=== PATIENT | female | born 1990 | race Two or more races ===

== ENCOUNTER 2023-06-30 15:32 | Outpatient (CLI) | payer OTHER | END 2023-06-30 15:34 | disposition home or self-care (01) | LOC: PRENATAL 15:32 | PROVIDERS: ATTEND Obstetrics & Gynecology Maternal & Fetal Medicine | DX: O36.80X0 Pregnancy with inconclusive fetal viability, not applicable or unspecified (principal); Z36.82 Encounter for antenatal screening for nuchal translucency; Z36.9 Encounter for antenatal screening, unspecified; O99.891 Other specified diseases and conditions complicating pregnancy; O34.10 Maternal care for benign tumor of corpus uteri, unspecified trimester; Z3A.12 12 weeks gestation of pregnancy ==

== ENCOUNTER → 2023-08-24 | Outpatient (CLI) | payer OTHER | END | disposition home or self-care (01) | LOC: PRENATAL 13:16 | PROVIDERS: ATTEND Obstetrics & Gynecology Maternal & Fetal Medicine | DX: O35.3XX0 Maternal care for (suspected) damage to fetus from viral disease in mother, not applicable or unspecified (principal); O44.00 Complete placenta previa NOS or without hemorrhage, unspecified trimester; O99.891 Other specified diseases and conditions complicating pregnancy; O34.10 Maternal care for benign tumor of corpus uteri, unspecified trimester; O36.0199 Maternal care for anti-D [Rh] antibodies, unspecified trimester, other fetus; Z3A.20 20 weeks gestation of pregnancy ==

== ENCOUNTER 2023-10-02 14:37 | Outpatient (CLI) | payer OTHER ==
[2023-10-02] MEDS ORDERED: PRENATAL TABLE1 EAC4 PO (14:45)
[2023-10-02] MEDS ORDERED: RINGERS SOLUTION,LACTATED 1,000 ML IV SCH (14:45)
[2023-10-02] MEDS ORDERED: CEFAZOLIN SODIUM 1,000 MG VIAL IV SCH (14:45)
[2023-10-02 15:03] LABS: HEMATOCRIT 32.8 % (36.0-45.00); HEMOGLOBIN 11.4 g/dL (12.0-15.00); MEAN CELL VOLUME 83.4 fL (80.00-100.00); MEAN CORPUSCULAR HGB CONC 34.8 g/dl (32.0-36.0); PLATELET COUNT 237 K/uL (150-450); RED BLOOD COUNT 3.94 M/uL (4.00-6.00); RED CELL DISTRIBUTION WIDTH 13.8 % (11.5-14.5)
[2023-10-02 15:28] LABS: INR < 0.93; PARTIAL THROMBOPLASTIN TIME 23.4 SECONDS (22.0-34.0); PROTHROMBIN TIME 9.8 SECONDS (9.0-11.5)
[2023-10-02 18:31] LABS: PH,URINE 6.5 (5.0-8.0); URINE APPEARANCE Clear; URINE BILIRRUBIN Negative (NEGATIVE); URINE BLOOD Negative; URINE COLOR Yellow; URINE GLUCOSE Negative (NEGATIVE); URINE LEUKOCYTE Negative; URINE NITRATE Negative; URINE PROTEIN Negative (NEGATIVE); URINE UROBILINOGEN 0.2 E.U./dl
[2023-10-02 18:35] LABS: URINE EPITHELIAL CELLS 4.1 uL (0.0-38.8)
[2023-10-02 18:36] LABS: URINE RBC 1.8 uL (0.0-20.8); URINE WBC 1.5 uL (0.0-23.2)
== END 2023-10-03 12:07 | disposition home or self-care (01) ==
LOC: OBS/DEL 14:37
PROVIDERS: Obstetrics & Gynecology; ATTEND Obstetrics & Gynecology
DX: O26.892 Other specified pregnancy related conditions, second trimester (principal); Z3A.26 26 weeks gestation of pregnancy; N75.0 Cyst of Bartholin's gland; O26.849 Uterine size-date discrepancy, unspecified trimester; O26.899 Other specified pregnancy related conditions, unspecified trimester

== ENCOUNTER 2024-01-05 10:31 | Inpatient (IN) | payer OTHER ==
[~2024-01-05] VITALS: Ht 152.4 cm; Wt 66.7 kg
[~2024-01-05 10:31] MED LIST: PRENATAL TABLE1 EAC4 PO
[2024-01-05] MEDS ORDERED: RINGERS SOLUTION,LACTATED 1,000 ML IV SCH (10:45)
[2024-01-05 11:07] LABS: MEAN CELL VOLUME 80.5 fL (80.00-100.00); MEAN CORPUSCULAR HEMOGLOBIN 27.6 pg (27.00-32.0); MEAN CORPUSCULAR HGB CONC 34.3 g/dl (32.0-36.0); PLATELET COUNT 197 K/uL (150-450); RED BLOOD COUNT 4.35 M/uL (4.00-6.00)
[2024-01-05 11:09] LABS: PH,URINE 5.5 (5.0-8.0); URINE APPEARANCE Turbid; URINE BILIRRUBIN Negative (NEGATIVE); URINE BLOOD Large; URINE COLOR Yellow; URINE GLUCOSE Negative (NEGATIVE); URINE LEUKOCYTE Small; URINE NITRATE Negative; URINE PROTEIN Trace (NEGATIVE); URINE UROBILINOGEN 0.2 E.U./dl
[2024-01-05 11:13] LABS: URINE BACTERIA 825.1 uL (0.0-1933); URINE EPITHELIAL CELLS 94.1 uL (0.0-38.8); URINE RBC 925.9 uL (0.0-20.8); URINE WBC 215.4 uL (0.0-23.2)
[2024-01-05 11:14] LABS: RED CELL DISTRIBUTION WIDTH 18.1 % (11.5-14.5)
[2024-01-05 11:49] LABS: ALBUMIN 3.1 gm/dL (3.4-5.0); BILIRUBIN TOTAL 0.41 mg/dL (0.3-1.2); CALCIUM 8.9 mg/dL (8.5-10.1); CREATININE SERUM 0.72 mg/dL (0.55-1.02); GFR 92.72; GLOBULINA 3.6 G/DL (2.4-3.5); POTASSIUM 3.89 mEq/L (3.5-5.1); TOTAL PROTEIN 6.7 gm/dL (6.4-8.2)
[2024-01-05 12:01] LABS: INR < 0.93; PROTHROMBIN TIME 9.6 SECONDS (9.0-11.5)
[2024-01-05] MEDS ORDERED: OXYTOCIN 500 ML IV SCH (16:15)
[2024-01-05] MEDS ORDERED: LIDOCAINE HCL 1% 10ML VIAL IJ ONE (16:55)
[2024-01-05] MEDS ORDERED: OXYTOCIN 10 UNITS/ML VIAL IM STA (17:45)
[2024-01-05] MEDS ORDERED: OXYTOCIN 1,000 ML IV SCH (17:45)
[2024-01-05] MEDS ORDERED: ERYTHROMYCIN BASE 1 GM TUBE OP SCH (17:45)
[2024-01-05] MEDS ORDERED: IBUprofen 400 MG TABLET PO PRN (17:45)
[2024-01-05] MEDS ORDERED: CHLORHEXIDINE GLUCONATE 120 ML BOTTLE TOP SCH (17:45)
[2024-01-05 20:09] LABS: ABG PO2 34.8 mmHg (80-100); ABG pCO2 37.7 mmHg (35-45); BASE EXCESS -5.3 mmol/l; BICARBONATE 19.9 mmol/l (23-25); SaO2 61.3 %; o2 21 %
[2024-01-05 20:50] LABS: HEMATOCRIT 33.5 % (36.0-45.00); HEMOGLOBIN 11.8 g/dL (12.0-15.00); MEAN CELL VOLUME 80.2 fL (80.00-100.00); MEAN CORPUSCULAR HEMOGLOBIN 28.1 pg (27.00-32.0); MEAN CORPUSCULAR HGB CONC 35.1 g/dl (32.0-36.0); PLATELET COUNT 214 K/uL (150-450); RED BLOOD COUNT 4.18 M/uL (4.00-6.00); RED CELL DISTRIBUTION WIDTH 17.5 % (11.5-14.5)
== END 2024-01-07 11:45 | disposition home or self-care (01) | DRG 807 ==
LOC: LDR 10:31 → OB/GYN 10:31
PROVIDERS: ADMIT Obstetrics & Gynecology; ATTEND Obstetrics & Gynecology
PROC: 10E0XZZ Delivery of Products of Conception, External Approach (ICD-10-PCS; principal; 2024-01-05)
PROC: 0KQM0ZZ Repair Perineum Muscle, Open Approach (ICD-10-PCS; 2024-01-05)
PROC: 4A1HXCZ Monitoring of Products of Conception, Cardiac Rate, External Approach (ICD-10-PCS; 2024-01-05)
DX: O70.1 Second degree perineal laceration during delivery (principal); O34.523 Maternal care for prolapse of gravid uterus, third trimester; Z3A.39 39 weeks gestation of pregnancy; Z37.0 Single live birth; Z20.822 Contact with and (suspected) exposure to COVID-19